=== PATIENT | male | born 1955 | race Caucasian/White ===

== ENCOUNTER 2024-06-16 07:30 | Outpatient (RCR) | payer MEDICARE, SELFPAY | END 2024-07-21 17:49 | disposition home or self-care (01) | PROVIDERS: Visit Provider Physician Assistant | DX: S44 Injury of nerves at shoulder and upper arm level (principal); Z51.89 Encounter for other specified aftercare | CPT/HCPCS: 97032; 97035; 97110; 97140; 97165; 97530; X5282 ==